=== PATIENT | male | born 1955 | race Caucasian/White ===

== ENCOUNTER 2020-01-24 19:02 | Emergency (ER) | payer SELFPAY ==
[2020-01-24] VITALS (8 sets, daily range): BP systolic 105–184; BP diastolic 64–114; PULSE 87–111; RESP 16–18; TEMP 36.8; O2SAT 91–94; BMI 23.9
--- NOTE | 2020-01-24 19:16 | XRR_ITS ---
PROCEDURE INFORMATION: Exam: XR Chest, 1 View Exam date and time: 01/24/2020 7:19 PM Age: 64 years old Clinical indication: Cough TECHNIQUE: Imaging protocol: XR of the chest Views: 1 view. COMPARISON: No relevant prior studies available. FINDINGS: Lungs: Mild interstitial prominence in the lung bases is likely chronic change. No focal consolidation. Emphysema. Pleural space: Unremarkable. No pleural effusion. No pneumothorax. Heart/Mediastinum: Unremarkable. No cardiomegaly. Bones/joints: Unremarkable. XR/XR chest 1V portable [id number] IMPRESSION: No acute findings.
--- NOTE | 2020-01-24 19:34 | ED_ITS ---
HPI - COVID General: Chief Complaint: COVID symptoms Stated Complaint: N/V body aches chills, Time Seen by Provider: 01/24/20 19:15 Triage information: No fever, cough or shortness of breath . No known COVID + exposure last 14 days History of Present Illness: HPI Narrative: 64-year-old male presents with a 2- week history of cough, body aches, vomiting, and diarrhea. He presents with worsening symptoms. He notes that he was better for a couple of days, but then began to get worse yesterday. He states he is vomited 30 times today. He has not had a fever today. He has not been tested for Covid. Prior covid testing: no COVID 19 common symptoms: positive chills, cough, productive cough, dyspnea, body aches, headache(s), nausea and vomiting COVID 19 other sytmptoms: negative chest pressure, chest pain, requiring oxygen or confusion Onset (ago): day(s) Pertinent comorbid conditions: diabetes Treatment prior to arrival: acetaminophen and cold medicine COVID Results: SARS-CoV-2 Antigen (Rapid) Negative (Negative) 01/24/20 19:52 01/24/20 SARS-CoV-2 RNA (RT-PCR) Pending 01/24/20 19:52 01/24/20 Review of Systems Const: Reports: chills and body aches Eyes: Denies: change in vision ENMT: Reports: odynophagia and sinus pain; Denies: swelling of lips/tongue, bleeding gums or post nasal drip Card: Denies: chest pain Resp: Reports: dyspnea and productive cough GI: Reports: nausea and vomiting; Denies: abdominal pain, hematochezia or melena : Denies: difficulty urinating or hematuria Musc: Denies: neck pain or joint warmth Skin/Breast: Denies: rash or erythema Neuro: Reports: headache(s); Denies: dizziness, vertigo or confusion Psych: Denies: anxiety Physical Exam Const: GENERAL APPEARANCE: well developed ORIENTATION/CONSCIOUSNESS: Yes oriented to person, Yes oriented to place and Yes oriented to time HENMT: COMMON NORMALS: normocephalic, external ears normal and Normal external nose present HEAD & SCALP: normocephalic FACE & SINUS: normal facial exam NOSE: Normal external nose present and No nasal discharge present EXTERNAL EAR: Yes external ears normal Eye: COMMON NORMALS: Equal, round and reactive pupils present, EOMs intact bilaterally and conjunctivae normal EYELID: eyelids normal CONJUNCTIVA: Yes conjunctivae normal PUPIL: Yes Equal, round and reactive pupils present Neck/C-Spine: GENERAL: No tracheal deviation Chest: COMMONS NORMALS: normal inspection of the chest CHEST: No tenderness Resp: COMMON NORMALS: clear to auscultation bilaterally EFFORT & INSPECTION: No tachypneic, No respiratory distress, No retractions, No uses accessory muscles and No tracheal deviation AUSCULTATION: clear to auscultation bilaterally, no rhonchi, no wheezes and lung sounds not diminished Cardio: COMMON NORMALS: regular rate and regular rhythm RATE: regular rate RHYTHM: regular rhythm HEART SOUNDS: no murmurs PERIPHERAL PULSES: radial pulses present GI: INSPECTION: No abdominal distension AUSCULTATION: No Hyperactive bowel sounds present and No Hypoactive bowel sounds present PALPATION: Yes Tenderness to palpation present (GI) (Mild) Details: LLQ, No Guarding due to palpation present (GI) and No Rigid due to palpation PERCUSSION: no dullness to percussion and no tympanic to percussion Neuro: SENSORIUM/ORIENTATION: Yes oriented to person, Yes oriented to place and Yes oriented to time Psych: COMMON NORMALS: mental status grossly normal Skin: COMMON NORMALS: no rashes or lesions noted GENERAL SKIN EXAM: no rashes or lesions noted Course Vital Signs: Vital signs: Vital Signs Temperature 98.2 F 01/24/20 19:08 Pulse Rate 92 01/25/20 02:00 Respiratory Rate 16 01/25/20 02:00 Blood Pressure 122/63 01/25/20 02:00 Pulse Oximetry 91 01/25/20 02:00 MDM - COVID [facility] Narrative: Medical decision making narrative: 64-year-old male comes in with vomiting and less so diarrhea. He is an insulin-dependent diabetic who has not had his insulin for several months. He has mild diffuse belly tenderness. His white count is 10. There is no significant elevation in his inflammatory markers. His first bicarbonate level is 20. He has ketones in the serum and urine. His pH is 7.35. He has been given 3 L of fluid. He is received IV insulin. His current glucose is 179, his gap is closed down to 15. His bicarbonate level is now 24. His electrolytes remain normal. He will be given 7 units of Lantus, which is half his normal dose, and prescriptions for sliding scale insulin and Lantus to go home with. Knows to return for further problems. Lab Data: Labs: Lab Results 01/24/20 01/24/20 01/24/20 Range/Units 19:52 19:52 19:56 WBC 10.0 (4.0-10.0) 10^3/ uL RBC 5.85 H (4.1-5.3) 10^6/u L Hgb 17.6 H (11.7-16.6) g/dL Hct 51.5 (42.0-52.0) % MCV 88.0 (80-94) fL MCH 30.1 (28.0-34.0) pg MCHC 34.2 (30.0-36.0) g/dL RDW 12.5 (12.1-15.1) % Plt Count 328 (130-400) 10^3/c mm MPV 10.7 H (7.4-10.4) fL Neut % (Auto) 79.2 % Lymph % (Auto) 15.2 % Dodge % (Auto) 4.7 % Eos % (Auto) 0.1 % Baso % (Auto) 0.3 % Neut # (Auto) 7.88 H (1.8-7.7) 10^3/u L Lymph # (Auto) 1.5 (0.8-4.8) 10^3/u L Dodge # (Auto) 0.5 (0.2-0.9) 10^3/u L Eos # (Auto) 0.0 (0.0-0.8) 10^3/u L Baso # (Auto) 0.0 (0.0-0.1) 10^3/u L Nucleated RBC % (a uto) 0 % Nucleated RBCs # 0.0 /100WBC Fibrinogen (174-498) mg/dL Specimen Type Sample Site ABG pH (7.35-7.45) ABG pCO2 (35-45) mmHg ABG pO2 (80.0-100.0) mmH g ABG HCO3 (22-26) mmol/L ABG Base Excess (-2.0-2.0) mmol/ L Chuck Test Hematocrit (42-52) % O2 Delivery Device FiO2 % Electrophysiology Scientist ID Sodium (136-145) mmol/L Potassium (3.5-5.1) mmol/L Chloride (98-107) mmol/L Carbon Dioxide (22-29) mmol/L Anion Gap (5-19) BUN (8-23) mg/dL Creatinine (0.7-1.2) mg/dL GFR Calculation (90-130) mL/min Glucose (65-115) mg/dL POC Glucose (70-110) mg/dL Calculated Osmolal ity (285-295) mOsm/k g Lactic Acid Calcium (8.5-10.5) mg/dL Total Bilirubin (0.15-1.2) mg/dL AST (0-40) U/L ALT (0-41) U/L Alkaline Phosphata se (40-130) IU/L C-Reactive Protein (0.0-4.9) mg/L NT-Pro-B Natriuret Pep (0-125) pg/mL Total Protein (6.6-8.7) g/dL Albumin (3.5-5.2) g/dL Globulin (1.3-4.6) g/dL Lipase (13-60) U/L Procalcitonin (0-0.5) ng/mL Urine Color (Yellow) Urine Appearance (CLEAR) Urine pH (5-7) Ur Specific Gravit y (1.005-1.030) Urine Protein (Negative) Urine Glucose (UA) (Normal) Urine Ketones (Negative) Urine Blood (Negative) Urine Nitrate (Negative) Urine Bilirubin (Negative) Urine Urobilinogen (Negative) mg/dL Ur Leukocyte My ase (Negative) Serum Ketones (Negative) Influenza Type A A g Negative (Negative) Influenza Type B A g Negative (Negative) SARS-CoV-2 Ag (Rap id) Negative (Negative) 01/24/20 01/24/20 01/24/20 Range/Units 19:56 19:56 19:56 WBC (4.0-10.0) 10^3/ uL RBC (4.1-5.3) 10^6/u L Hgb (11.7-16.6) g/dL Hct (42.0-52.0) % MCV (80-94) fL MCH (28.0-34.0) pg MCHC (30.0-36.0) g/dL RDW (12.1-15.1) % Plt Count (130-400) 10^3/c mm MPV (7.4-10.4) fL Neut % (Auto) % Lymph % (Auto) % Dodge % (Auto) % Eos % (Auto) % Baso % (Auto) % Neut # (Auto) (1.8-7.7) 10^3/u L Lymph # (Auto) (0.8-4.8) 10^3/u L Dodge # (Auto) (0.2-0.9) 10^3/u L Eos # (Auto) (0.0-0.8) 10^3/u L Baso # (Auto) (0.0-0.1) 10^3/u L Nucleated RBC % (a uto) % Nucleated RBCs # /100WBC Fibrinogen 433 (174-498) mg/dL Specimen Type Sample Site ABG pH (7.35-7.45) ABG pCO2 (35-45) mmHg ABG pO2 (80.0-100.0) mmH g ABG HCO3 (22-26) mmol/L ABG Base Excess (-2.0-2.0) mmol/ L Chuck Test Hematocrit (42-52) % O2 Delivery Device FiO2 % Electrophysiology Scientist ID Sodium 131 L (136-145) mmol/L Potassium 4.1 (3.5-5.1) mmol/L Chloride 91 L (98-107) mmol/L Carbon Dioxide 20 L (22-29) mmol/L Anion Gap 24.1 H (5-19) BUN 12 (8-23) mg/dL Creatinine 0.6 L (0.7-1.2) mg/dL GFR Calculation 136.5 H (90-130) mL/min Glucose 377 H (65-115) mg/dL POC Glucose (70-110) mg/dL Calculated Osmolal ity 287 (285-295) mOsm/k g Lactic Acid Cancelled Calcium 10.2 (8.5-10.5) mg/dL Total Bilirubin 0.6 (0.15-1.2) mg/dL AST 10 (0-40) U/L ALT 15 (0-41) U/L Alkaline Phosphata se 113 (40-130) IU/L C-Reactive Protein 0.6 (0.0-4.9) mg/L NT-Pro-B Natriuret Pep 51 (0-125) pg/mL Total Protein 7.6 (6.6-8.7) g/dL Albumin 4.5 (3.5-5.2) g/dL Globulin 3.1 (1.3-4.6) g/dL Lipase 82 H (13-60) U/L Procalcitonin 0.02 (0-0.5) ng/mL Urine Color (Yellow) Urine Appearance (CLEAR) Urine pH (5-7) Ur Specific Gravit y (1.005-1.030) Urine Protein (Negative) Urine Glucose (UA) (Normal) Urine Ketones (Negative) Urine Blood (Negative) Urine Nitrate (Negative) Urine Bilirubin (Negative) Urine Urobilinogen (Negative) mg/dL Ur Leukocyte My ase (Negative) Serum Ketones (Negative) Influenza Type A A g (Negative) Influenza Type B A g (Negative) SARS-CoV-2 Ag (Rap id) (Negative) 01/24/20 01/24/20 01/24/20 Range/Units 19:56 20:29 22:07 WBC (4.0-10.0) 10^3/ uL RBC (4.1-5.3) 10^6/u L Hgb (11.7-16.6) g/dL Hct (42.0-52.0) % MCV (80-94) fL MCH (28.0-34.0) pg MCHC (30.0-36.0) g/dL RDW (12.1-15.1) % Plt Count (130-400) 10^3/c mm MPV (7.4-10.4) fL Neut % (Auto) % Lymph % (Auto) % Dodge % (Auto) % Eos % (Auto) % Baso % (Auto) % Neut # (Auto) (1.8-7.7) 10^3/u L Lymph # (Auto) (0.8-4.8) 10^3/u L Dodge # (Auto) (0.2-0.9) 10^3/u L Eos # (Auto) (0.0-0.8) 10^3/u L Baso # (Auto) (0.0-0.1) 10^3/u L Nucleated RBC % (a uto) % Nucleated RBCs # /100WBC Fibrinogen (174-498) mg/dL Specimen Type Sample Site ABG pH (7.35-7.45) ABG pCO2 (35-45) mmHg ABG pO2 (80.0-100.0) mmH g ABG HCO3 (22-26) mmol/L ABG Base Excess (-2.0-2.0) mmol/ L Chuck Test Hematocrit (42-52) % O2 Delivery Device FiO2 % Electrophysiology Scientist ID Sodium (136-145) mmol/L Potassium (3.5-5.1) mmol/L Chloride (98-107) mmol/L Carbon Dioxide (22-29) mmol/L Anion Gap (5-19) BUN (8-23) mg/dL Creatinine (0.7-1.2) mg/dL GFR Calculation (90-130) mL/min Glucose (65-115) mg/dL POC Glucose (70-110) mg/dL Calculated Osmolal ity (285-295) mOsm/k g Lactic Acid 1.5 Calcium (8.5-10.5) mg/dL Total Bilirubin (0.15-1.2) mg/dL AST (0-40) U/L ALT (0-41) U/L Alkaline Phosphata se (40-130) IU/L C-Reactive Protein (0.0-4.9) mg/L NT-Pro-B Natriuret Pep (0-125) pg/mL Total Protein (6.6-8.7) g/dL Albumin (3.5-5.2) g/dL Globulin (1.3-4.6) g/dL Lipase (13-60) U/L Procalcitonin (0-0.5) ng/mL Urine Color Yellow (Yellow) Urine Appearance Clear (CLEAR) Urine pH 5 (5-7) Ur Specific Gravit y 1.020 (1.005-1.030) Urine Protein Neg (Negative) Urine Glucose (UA) 4+ H (Normal) Urine Ketones 3+ H (Negative) Urine Blood Neg (Negative) Urine Nitrate Negative (Negative) Urine Bilirubin Neg (Negative) Urine Urobilinogen Norm (Negative) mg/dL Ur Leukocyte My ase Negative (Negative) Serum Ketones Positive H (Negative) Influenza Type A A g (Negative) Influenza Type B A g (Negative) SARS-CoV-2 Ag (Rap id) (Negative) 01/24/20 01/25/20 01/25/20 Range/Units 22:10 00:26 01:52 WBC (4.0-10.0) 10^3/ uL RBC (4.1-5.3) 10^6/u L Hgb (11.7-16.6) g/dL Hct (42.0-52.0) % MCV (80-94) fL MCH (28.0-34.0) pg MCHC (30.0-36.0) g/dL RDW (12.1-15.1) % Plt Count (130-400) 10^3/c mm MPV (7.4-10.4) fL Neut % (Auto) % Lymph % (Auto) % Dodge % (Auto) % Eos % (Auto) % Baso % (Auto) % Neut # (Auto) (1.8-7.7) 10^3/u L Lymph # (Auto) (0.8-4.8) 10^3/u L Dodge # (Auto) (0.2-0.9) 10^3/u L Eos # (Auto) (0.0-0.8) 10^3/u L Baso # (Auto) (0.0-0.1) 10^3/u L Nucleated RBC % (a uto) % Nucleated RBCs # /100WBC Fibrinogen (174-498) mg/dL Specimen Type Arterial Sample Site Radial, left ABG pH 7.36 (7.35-7.45) ABG pCO2 39.2 (35-45) mmHg ABG pO2 74.8 L (80.0-100.0) mmH g ABG HCO3 21.9 L (22-26) mmol/L ABG Base Excess -3.3 L (-2.0-2.0) mmol/ L Chuck Test Pos Hematocrit 51.2 (42-52) % O2 Delivery Device None FiO2 21.0 % Electrophysiology Scientist ID [id number] Sodium 137 (136-145) mmol/L Potassium 4.0 (3.5-5.1) mmol/L Chloride 102 (98-107) mmol/L Carbon Dioxide 24 (22-29) mmol/L Anion Gap 15.0 (5-19) BUN 11 (8-23) mg/dL Creatinine 0.5 L (0.7-1.2) mg/dL GFR Calculation 168.5 H (90-130) mL/min Glucose 190 H (65-115) mg/dL POC Glucose 196 (70-110) mg/dL Calculated Osmolal ity 288 (285-295) mOsm/k g Lactic Acid Calcium 9.2 (8.5-10.5) mg/dL Total Bilirubin (0.15-1.2) mg/dL AST (0-40) U/L ALT (0-41) U/L Alkaline Phosphata se (40-130) IU/L C-Reactive Protein (0.0-4.9) mg/L NT-Pro-B Natriuret Pep (0-125) pg/mL Total Protein (6.6-8.7) g/dL Albumin (3.5-5.2) g/dL Globulin (1.3-4.6) g/dL Lipase (13-60) U/L Procalcitonin (0-0.5) ng/mL Urine Color (Yellow) Urine Appearance (CLEAR) Urine pH (5-7) Ur Specific Gravit y (1.005-1.030) Urine Protein (Negative) Urine Glucose (UA) (Normal) Urine Ketones (Negative) Urine Blood (Negative) Urine Nitrate (Negative) Urine Bilirubin (Negative) Urine Urobilinogen (Negative) mg/dL Ur Leukocyte My ase (Negative) Serum Ketones (Negative) Influenza Type A A g (Negative) Influenza Type B A g (Negative) SARS-CoV-2 Ag (Rap id) (Negative) 01/25/20 Range/Units 01:53 WBC (4.0-10.0) 10^3/ uL RBC (4.1-5.3) 10^6/u L Hgb (11.7-16.6) g/dL Hct (42.0-52.0) % MCV (80-94) fL MCH (28.0-34.0) pg MCHC (30.0-36.0) g/dL RDW (12.1-15.1) % Plt Count (130-400) 10^3/c mm MPV (7.4-10.4) fL Neut % (Auto) % Lymph % (Auto) % Dodge % (Auto) % Eos % (Auto) % Baso % (Auto) % Neut # (Auto) (1.8-7.7) 10^3/u L Lymph # (Auto) (0.8-4.8) 10^3/u L Dodge # (Auto) (0.2-0.9) 10^3/u L Eos # (Auto) (0.0-0.8) 10^3/u L Baso # (Auto) (0.0-0.1) 10^3/u L Nucleated RBC % (a uto) % Nucleated RBCs # /100WBC Fibrinogen (174-498) mg/dL Specimen Type Sample Site ABG pH (7.35-7.45) ABG pCO2 (35-45) mmHg ABG pO2 (80.0-100.0) mmH g ABG HCO3 (22-26) mmol/L ABG Base Excess (-2.0-2.0) mmol/ L Chuck Test Hematocrit (42-52) % O2 Delivery Device FiO2 % Electrophysiology Scientist ID Sodium (136-145) mmol/L Potassium (3.5-5.1) mmol/L Chloride (98-107) mmol/L Carbon Dioxide (22-29) mmol/L Anion Gap (5-19) BUN (8-23) mg/dL Creatinine (0.7-1.2) mg/dL GFR Calculation (90-130) mL/min Glucose (65-115) mg/dL POC Glucose 179 (70-110) mg/dL Calculated Osmolal ity (285-295) mOsm/k g Lactic Acid Calcium (8.5-10.5) mg/dL Total Bilirubin (0.15-1.2) mg/dL AST (0-40) U/L ALT (0-41) U/L Alkaline Phosphata se (40-130) IU/L C-Reactive Protein (0.0-4.9) mg/L NT-Pro-B Natriuret Pep (0-125) pg/mL Total Protein (6.6-8.7) g/dL Albumin (3.5-5.2) g/dL Globulin (1.3-4.6) g/dL Lipase (13-60) U/L Procalcitonin (0-0.5) ng/mL Urine Color (Yellow) Urine Appearance (CLEAR) Urine pH (5-7) Ur Specific Gravit y (1.005-1.030) Urine Protein (Negative) Urine Glucose (UA) (Normal) Urine Ketones (Negative) Urine Blood (Negative) Urine Nitrate (Negative) Urine Bilirubin (Negative) Urine Urobilinogen (Negative) mg/dL Ur Leukocyte My ase (Negative) Serum Ketones (Negative) Influenza Type A A g (Negative) Influenza Type B A g (Negative) SARS-CoV-2 Ag (Rap id) (Negative) COVID Results: SARS-CoV-2 Antigen (Rapid) Negative (Negative) 01/24/20 19:52 01/24/20 SARS-CoV-2 RNA (RT-PCR) Pending 01/24/20 19:52 01/24/20 Discharge Plan Discharge Patient Disposition: Home Clinical Impression: Diabetic keto-acidosis Qualifiers: Diabetes mellitus type: type 2 Diabetes mellitus complication detail: without coma Qualified Code(s): E11.10 - Type 2 diabetes mellitus with ketoacidosis wit hout coma Condition: Stable Prescriptions: New Lantus U-100 Insulin 100 unit/mL solution 7 unit SUBCUT BID Qty: 10 RF: 1 insulin regular human 100 unit/mL solution 3 unit SUBCUT AC PRN (Reason: hyperglycemia) Qty: 10 RF: 2 (DME) lancets Misc See Rx Instructions .ROUTE .MEDSUPPLY Qty: 100 RF: 0 Zofran 4 mg tablet 4 mg PO Q6H PRN (Reason: nausea and vomiting) Qty: 10 RF: 0 Discharge Orders: Discharge Order (Routine); Ordered 01/25/20 Ordered By: Gil Torres Discharge Diet: Diabetic Discharge Activity: Increase activity as tolerated Patient Instructions: Diabetic Ketoacidosis (ED) Activity Restrictions/Additional Instructions: Start out with 7 units of Lantus twice daily instead of your normal dose of 15 since you have lost weight recently. Adjust accordingly. Use your sliding scale for regular insulin before meals as you previously did. Check your sugar often. Return to the emergency department for vomiting liquids or medications, fever greater than 100, shortness of breath, worsening diarrhea, other concerning symptoms. Coding Level of Care Code ED Variety Saw Operator for Kennethg Fwd Exam Comprehensive
[2020-01-24] MEDS: ondansetron 2 mg/ML SDV 2 mL 4 MG IVP (20:03)
[2020-01-24] MEDS: sodium chloride 0.9% 1,000 ML 999 ML IV ×3 (20:03→23:35)
[2020-01-24 20:07] LABS: Basophils % 0.3 %; Eosinophils % 0.1 %; Hematocrit 51.5 % (42.0-52.0); Hemoglobin 17.6 g/dL (11.7-16.6); Lymphocytes # 1.5 10^3/uL (0.8-4.8); Lymphocytes % 15.2 %; Mean Corpuscular HGB Conc 34.2 g/dL (30.0-36.0); Mean Corpuscular Hemoglobin 30.1 pg (28.0-34.0); Mean Platelet Volume 10.7 fL (7.4-10.4); Monocytes # 0.5 10^3/uL (0.2-0.9); Monocytes % 4.7 %; Neutrophils # 7.88 10^3/uL (1.8-7.7); Neutrophils % 79.2 %; Nucleated Red Blood Cells % 0 %; Platelet Count 328 10^3/cmm (130-400); Red Blood Count 5.85 10^6/uL (4.1-5.3); Red Cell Distribution Width 12.5 % (12.1-15.1)
[2020-01-24 20:20] LABS: Fibrinogen 433 mg/dL (174-498)
[2020-01-24 20:35] LABS: Alanine Aminotransferase 15 U/L (0-41); Albumin Level 4.5 g/dL (3.5-5.2); Alkaline Phosphatase 113 IU/L (40-130); Anion Gap 24.1 (5-19); Aspartate Amino Transferase 10 U/L (0-40); Blood Urea Nitrogen 12 mg/dL (8-23); C Reactive Protein 0.6 mg/L (0.0-4.9); Calcium 10.2 mg/dL (8.5-10.5); Carbon Dioxide 20 mmol/L (22-29); Chloride 91 mmol/L (98-107); Globulin 3.1 g/dL (1.3-4.6); Glomerular Filtration Rate 136.5 mL/min (90-130); Glucose 377 mg/dL (65-115); Lipase 82 U/L (13-60); NT Pro B Type Natriuretic Pept 51 pg/mL (0-125); Osmolality Calculated 287 mOsm/kg (285-295); Potassium 4.1 mmol/L (3.5-5.1); Sodium 131 mmol/L (136-145); Total Bilirubin 0.6 mg/dL (0.15-1.2); Total Protein 7.6 g/dL (6.6-8.7)
[2020-01-24 21:19] LABS: Influenza A by IFA Negative (Negative); Influenza B by IFA Negative (Negative); SARS Covid-2 Antigen Negative (Negative)
[2020-01-24 21:23] LABS: Lactic Sepsis W/Reflex 1.5 mmol/L (0.5-2.2)
[2020-01-24 22:06] LABS: Ketone (Acetest) Serum Positive (Negative)
[2020-01-24 22:13] LABS: Add Urine Microscopic? NO
[2020-01-24 22:20] LABS: ABG PCO2 39.2 mmHg (35-45); ABG PH Result 7.36 (7.35-7.45); Arterial Blood Gas Hematocrit 51.2 % (42-52); Base Excess ABG -3.3 mmol/L (-2.0-2.0); Blood Gas Allen Test Pos; Blood Gas Sample Site Radial, left; Blood Gas Sample Type Arterial; HCO3 ABG 21.9 mmol/L (22-26); PO2 ABG 74.8 mmHg (80.0-100.0)
[2020-01-24 22:26] LABS: Bilirubin Urine Neg (Negative); Blood Urine Neg (Negative); Glucose Urine UA 4+ (Normal); Ketones Urine 3+ (Negative); Leukocyte Esterase Urine Negative (Negative); Nitrate Urine Negative (Negative); Protein Urine Neg (Negative); Urine Appearance Clear (CLEAR); Urine Color Yellow (Yellow); Urobilinogen Urine Norm (Negative); pH Urine 5 (5-7)
[2020-01-24] MEDS: albuterol 8 gm MDI 2 PUFF INHALATION (22:39)
[2020-01-24 22:43] LABS: Procalcitonin 0.02 ng/mL (0-0.5)
[2020-01-24] MEDS: insulin regular-human 100 units/1 mL 8 UNIT IVP (23:30)
[2020-01-25] VITALS (7 sets, daily range): BP systolic 105–148; BP diastolic 61–75; PULSE 78–92; RESP 16–18; O2SAT 90–94
--- NOTE | 2020-01-25 00:28 | PC.NURSE ---
PT glu:196
[2020-01-25 00:29] LABS: Glucose Point of Care 196 mg/dL (70-110)
[2020-01-25] MEDS: insulin regular-human 100 units/1 mL 3 UNIT IVP (01:13)
--- NOTE | 2020-01-25 01:54 | PC.NURSE ---
Glu: 179
[2020-01-25 01:56] LABS: Glucose Point of Care 179 mg/dL (70-110)
[2020-01-25 02:18] LABS: Blood Urea Nitrogen 11 mg/dL (8-23); Calcium 9.2 mg/dL (8.5-10.5); Carbon Dioxide 24 mmol/L (22-29); Chloride 102 mmol/L (98-107); Glomerular Filtration Rate 168.5 mL/min (90-130); Glucose 190 mg/dL (65-115); Osmolality Calculated 288 mOsm/kg (285-295); Sodium 137 mmol/L (136-145)
[2020-01-25] MEDS: insulin glargine 100 units/1 mL 7 UNIT SUBCUT (02:52)
[2020-01-27 05:25] LABS: Quest SARS-CoV-2 RNA NOT DETECTED (NOT DETECTED)
--- NOTE | 2020-01-27 08:46 | PC.NURSE ---
pt was contacted via phone and given the results of his covid test
== END 2020-01-25 03:01 | disposition home or self-care (01) ==
PROVIDERS: Emergency Provider Emergency Medicine
DX: E11.10 Type 2 diabetes mellitus with ketoacidosis without coma (principal)
CPT/HCPCS: 12345; 36416; 36600; 71045; 80048; 80053; 81003; 82009; 82803; 82962; 83605; 83690; 83880; 84145; 85025; 85384; 86140; 87040; 87426; 87635; 87804; 94640; 96361; 96372; 96374; 96375; 96376; 99283; 99284; J1815 ×2; J2405; J3535; J7030

== ENCOUNTER 2020-04-07 17:09 | Emergency (ER) | payer SELFPAY ==
[2020-04-07 17:20] VITALS: BP 169/98; PULSE 86; RESP 18; TEMP 36.7; O2SAT 93; BMI 24.7
[2020-04-07 17:34] LABS: Glucose Point of Care 359 mg/dL (70-110)
--- NOTE | 2020-04-07 18:17 | ECG_ITS ---
[facility] Test Date: 2020-04-07 Pat Name: Dangelo Patricia Department: Room: Gender: Male [employer]ier [employer]: : 1955 Requested By: Kendra Blandon Order Number: [id number] Mckayla MD: Chaya Linn M.D. Measurements Intervals [place] Rate: 85 P: 73 AZ: 130 QRS: 57 QRSD: 86 T: 62 QT: 361 QTc: 432 Interpretive Statements SINUS RHYTHM No previous ECG available for comparison Electronically Signed On 04-07-2020 20:18:45 PICKLE [employer]KER by Chaya Linn M.D. [email or web address]
--- NOTE | 2020-04-07 18:17 | XR_ITS ---
WS: [id number] Portable AP upright chest, 04/07/2020 Clinical Data: sob Comparison: Portable chest, 01/24/2020. Findings: No nodules, masses or effusions are seen. The heart is normal. The pulmonary vascularity is not increased. No pneumonia or pneumothorax is seen. Monitor leads are on the chest wall. The aortic arch and descending aorta show tortuosity. XR/XR chest 1V portable [id number] Impression: Atherosclerosis.
--- NOTE | 2020-04-07 18:19 | ED_ITS ---
HPI - SOB/Dyspnea General: Chief Complaint: Shortness of Breath/Dyspnea Stated Complaint: DIFFICULTY BREATHING, HAS COPD Time Seen by Provider: 04/07/20 18:10 Source: patient Mode of arrival: ambulatory Limitations: no limitations History of Present Illness: HPI Narrative: Christiano is a 64-year-old male who has a history of diabetes along with COPD. Patient is concerned he might be going into DKA as he has in the past and his blood sugar has been increasing up to 400. States he had some mild shortness of breath as he is recently ran out of his albuterol inhaler. He states he is in between jobs and does not have insurance currently. Denies any fever. He is in no distress here. Denies any chest pain. Associated symptoms: Deny abdominal pain, chest pain, fever(s), nausea or vomiting Review of Systems Const: Denies: fever(s), chills, body aches or change in appetite Eyes: Denies: blurry vision or eye discomfort ENMT: Denies: throat pain or dental pain Card: Denies: chest pain Resp: Reports: dyspnea GI: Denies: abdominal pain, nausea, vomiting or diarrhea : Denies: dysuria Musc: Denies: neck pain or back pain Skin/Breast: Denies: rash Neuro: Denies: headache(s) Psych: Denies: depression Hipolito/Lymph: Denies: easy bruising All/Imm: Denies: urticaria Physical Exam Const: COMMON NORMALS: no acute distress, patient oriented x3 and healthy appearing HENMT: COMMON NORMALS: normocephalic and atraumatic HEAD & SCALP: normocephalic and atraumatic Eye: COMMON NORMALS: Equal, round and reactive pupils present and EOMs intact bilaterally PUPIL: Yes Equal, round and reactive pupils present Neck/C-Spine: COMMON NORMALS: full ROM and supple Chest: COMMONS NORMALS: normal inspection of the chest and normal palpation of entire chest wall Resp: COMMON NORMALS: normal respiratory effort, No retractions, No use of accessory muscles and clear to auscultation bilaterally AUSCULTATION: clear to auscultation bilaterally Cardio: COMMON NORMALS: regular rate, regular rhythm and No murmurs present (Cardio) RATE: regular rate RHYTHM: regular rhythm GI: COMMON NORMALS: Normal to inspection, nondistended, normoactive bowel sounds present, Soft to palpation, non-tender and no masses PALPATION: Yes Soft to palpation Extremity: COMMON NORMALS: normal to inspection and full ROM Neuro: COMMON NORMALS: patient oriented x3, moves all extremities and no focal motor deficits Psych: COMMON NORMALS: mental status grossly normal, Normal thought process present and cooperative THOUGHT PROCESS: Normal thought process present Skin: COMMON NORMALS: no rashes or lesions noted and no wounds GENERAL SKIN EXAM: no rashes or lesions noted Course Vital Signs: Vital signs: Vital Signs Temperature 98.0 F 04/07/20 17:20 Pulse Rate 93 04/07/20 19:00 Respiratory Rate 16 04/07/20 19:00 Blood Pressure 153/91 04/07/20 19:00 Pulse Oximetry 96 04/07/20 19:00 MDM - SOB/Dyspnea MDM Narrative: Medical decision making narrative: Patient presents here with hyperglycemia. He is not DKA and his blood sugar is improved here. Informed he needs to take his meds as prescribed. Patient's in no respiratory distress and is to take albuterol for his COPD. He has no signs of pneumonia. He feels improved. He is stable for discharge and is return if worsening. Lab Data: Labs: Lab Results 04/07/20 04/07/20 04/07/20 Range/Units 17:26 18:30 18:43 WBC 10.3 H (4.0-10.0) 10^3/ uL RBC 5.46 H (4.1-5.3) 10^6/u L Hgb 16.5 (11.7-16.6) g/dL Hct 48.6 (42.0-52.0) % MCV 89.0 (80-94) fL MCH 30.2 (28.0-34.0) pg MCHC 34.0 (30.0-36.0) g/dL RDW 13.5 (12.1-15.1) % Plt Count 331 (130-400) 10^3/c mm MPV 10.4 (7.4-10.4) fL Neut % (Auto) 66.4 % Lymph % (Auto) 22.9 % [place] % (Auto) 7.0 % Eos % (Auto) 2.8 % Baso % (Auto) 0.4 % Neut # (Auto) 6.87 (1.8-7.7) 10^3/u L Lymph # (Auto) 2.4 (0.8-4.8) 10^3/u L [place] # (Auto) 0.7 (0.2-0.9) 10^3/u L Eos # (Auto) 0.3 (0.0-0.8) 10^3/u L Baso # (Auto) 0.0 (0.0-0.1) 10^3/u L Nucleated RBC % (a uto) 0 % Nucleated RBCs # 0.0 /100WBC Specimen Type Arterial Sample Site Brachial, left ABG pH 7.46 H (7.35-7.45) ABG pCO2 39.0 (35-45) mmHg ABG pO2 71.1 L (80.0-100.0) mmH g ABG HCO3 27.5 H (22-26) mmol/L ABG Base Excess 3.4 H (-2.0-2.0) mmol/ L Chuck Test N/a Hematocrit 53.3 H (42-52) % Hgb O2 Saturation 93.0 L (95-100) % Carboxyhemoglobin < 0.0 L (0.4-20.1) %THgb Methemoglobin 0.6 (0.4-1.5) % Total Hemoglobin 17.4 (14-18) g/dL O2 Delivery Device Room air Physical Therapy Director ID Gd Sodium (136-145) mmol/L Potassium (3.5-5.1) mmol/L Chloride (98-107) mmol/L Carbon Dioxide (22-29) mmol/L Anion Gap (5-19) BUN (8-23) mg/dL Creatinine (0.7-1.2) mg/dL GFR Calculation (90-130) mL/min Glucose (65-115) mg/dL POC Glucose 359 H (70-110) mg/dL Calculated Osmolal ity (285-295) mOsm/k g Calcium (8.5-10.5) mg/dL Total Bilirubin (0.15-1.2) mg/dL AST (0-40) U/L ALT (0-41) U/L Alkaline Phosphata se (40-130) IU/L NT-Pro-B Natriuret Pep (0-125) pg/mL Total Protein (6.6-8.7) g/dL Albumin (3.5-5.2) g/dL Globulin (1.3-4.6) g/dL 04/07/20 04/07/20 Range/Units 18:43 20:09 WBC (4.0-10.0) 10^3/ uL RBC (4.1-5.3) 10^6/u L Hgb (11.7-16.6) g/dL Hct (42.0-52.0) % MCV (80-94) fL MCH (28.0-34.0) pg MCHC (30.0-36.0) g/dL RDW (12.1-15.1) % Plt Count (130-400) 10^3/c mm MPV (7.4-10.4) fL Neut % (Auto) % Lymph % (Auto) % [place] % (Auto) % Eos % (Auto) % Baso % (Auto) % Neut # (Auto) (1.8-7.7) 10^3/u L Lymph # (Auto) (0.8-4.8) 10^3/u L [place] # (Auto) (0.2-0.9) 10^3/u L Eos # (Auto) (0.0-0.8) 10^3/u L Baso # (Auto) (0.0-0.1) 10^3/u L Nucleated RBC % (a uto) % Nucleated RBCs # /100WBC Specimen Type Sample Site ABG pH (7.35-7.45) ABG pCO2 (35-45) mmHg ABG pO2 (80.0-100.0) mmH g ABG HCO3 (22-26) mmol/L ABG Base Excess (-2.0-2.0) mmol/ L Chuck Test Hematocrit (42-52) % Hgb O2 Saturation (95-100) % Carboxyhemoglobin (0.4-20.1) %THgb Methemoglobin (0.4-1.5) % Total Hemoglobin (14-18) g/dL O2 Delivery Device Physical Therapy Director ID Sodium 133 L (136-145) mmol/L Potassium 4.4 (3.5-5.1) mmol/L Chloride 97 L (98-107) mmol/L Carbon Dioxide 25 (22-29) mmol/L Anion Gap 15.4 (5-19) BUN 18 (8-23) mg/dL Creatinine 0.5 L (0.7-1.2) mg/dL GFR Calculation 168.5 H (90-130) mL/min Glucose 325 H (65-115) mg/dL POC Glucose 248 H (70-110) mg/dL Calculated Osmolal ity 290 (285-295) mOsm/k g Calcium 10.1 (8.5-10.5) mg/dL Total Bilirubin 0.3 (0.15-1.2) mg/dL AST 11 (0-40) U/L ALT 20 (0-41) U/L Alkaline Phosphata se 119 (40-130) IU/L NT-Pro-B Natriuret Pep 19 (0-125) pg/mL Total Protein 7.4 (6.6-8.7) g/dL Albumin 4.2 (3.5-5.2) g/dL Globulin 3.2 (1.3-4.6) g/dL Imaging Data^: CXR: Attestation: I personally reviewed and interpreted this imaging study as follows: My impression: no acute abnormality EKG Data^: EKG 1: Attestation: I personally reviewed and interpreted this EKG as follows: EKG Interpretation Date: 04/07/20 EKG interpretation time: 19:08 Interpretation: nsr hr [address] or t wave abnormalities qrs 86 qtc 404 Discharge Plan Discharge Patient Disposition: Home Clinical Impression: Hyperglycemia COPD (chronic obstructive pulmonary disease) Qualifiers: COPD type: unspecified COPD Qualified Code(s): J44.9 - Chronic obstructive pulmonary disease, unspecified Condition: Stable Prescriptions: New albuterol sulfate 90 mcg/actuation HFA aerosol inhaler 2 inh INHALATION Q6H PRN (Reason: shortness of breath or wheezing) Qty: 8 RF: 0 ondansetron 4 mg tablet,disintegrating 4 mg PO Q6H PRN (Reason: nausea and vomiting) Qty: 14 RF: 0 No Action (DME) lancets Misc See Rx Instructions .ROUTE .MEDSUPPLY Qty: 100 RF: 0 ondansetron HCl [Zofran] 4 mg tablet 4 mg PO Q6H PRN (Reason: nausea and vomiting) Qty: 10 RF: 0 Lantus U-100 Insulin 100 unit/mL solution 10 unit SUBCUT BID RF: 0 insulin regular human 100 unit/mL solution 3 unit SUBCUT BID PRN (Reason: hyperglycemia) RF: 0 Discharge Orders: Discharge ED (Routine); Ordered 04/07/20 Ordered By: Kendra Blandon Discharge Diet: Advance as tolerated Discharge Activity: Resume usual activity Patient Instructions: Hyperglycemia, Chronic Obstructive Pulmonary Disease (ED) Coding Level of Care Code ED Mica Machine Operator for Mark Fwd Exam Comprehensive
[2020-04-07 18:36] VITALS: PULSE 85; RESP 20; O2SAT 94
[2020-04-07 18:37] VITALS: PULSE 86
[2020-04-07 18:46] LABS: ABG PH Result 7.46 (7.35-7.45); Arterial Blood Gas Hematocrit 53.3 % (42-52); Base Excess ABG 3.4 mmol/L (-2.0-2.0); Blood Gas Operator Identificat GD; Blood Gas Sample Site Brachial, left; Blood Gas Sample Type Arterial; Carboxyhemoglobin < 0.0 %THgb (0.4-20.1); HCO3 ABG 27.5 mmol/L (22-26); Methemoglobin 0.6 % (0.4-1.5); Oxygen Device ROOM AIR; PO2 ABG 71.1 mmHg (80.0-100.0); Total Hemoglobin 17.4 g/dL (14-18)
[2020-04-07 19:00] VITALS: BP 153/91; PULSE 93; RESP 16; O2SAT 96
[2020-04-07 19:11] LABS: Basophils % 0.4 %; Eosinophils # 0.3 10^3/uL (0.0-0.8); Eosinophils % 2.8 %; Hematocrit 48.6 % (42.0-52.0); Hemoglobin 16.5 g/dL (11.7-16.6); Lymphocytes # 2.4 10^3/uL (0.8-4.8); Lymphocytes % 22.9 %; Mean Corpuscular Hemoglobin 30.2 pg (28.0-34.0); Mean Platelet Volume 10.4 fL (7.4-10.4); Monocytes # 0.7 10^3/uL (0.2-0.9); Neutrophils # 6.87 10^3/uL (1.8-7.7); Neutrophils % 66.4 %; Nucleated Red Blood Cells % 0 %; Platelet Count 331 10^3/cmm (130-400); Red Blood Count 5.46 10^6/uL (4.1-5.3); Red Cell Distribution Width 13.5 % (12.1-15.1); White Blood Count 10.3 10^3/uL (4.0-10.0)
[2020-04-07 19:30] LABS: Alanine Aminotransferase 20 U/L (0-41); Albumin Level 4.2 g/dL (3.5-5.2); Alkaline Phosphatase 119 IU/L (40-130); Anion Gap 15.4 (5-19); Aspartate Amino Transferase 11 U/L (0-40); Blood Urea Nitrogen 18 mg/dL (8-23); Calcium 10.1 mg/dL (8.5-10.5); Carbon Dioxide 25 mmol/L (22-29); Chloride 97 mmol/L (98-107); Globulin 3.2 g/dL (1.3-4.6); Glomerular Filtration Rate 168.5 mL/min (90-130); Glucose 325 mg/dL (65-115); NT Pro B Type Natriuretic Pept 19 pg/mL (0-125); Osmolality Calculated 290 mOsm/kg (285-295); Potassium 4.4 mmol/L (3.5-5.1); Sodium 133 mmol/L (136-145); Total Bilirubin 0.3 mg/dL (0.15-1.2); Total Protein 7.4 g/dL (6.6-8.7)
[2020-04-07] MEDS: sodium chloride 0.9% 1,000 ML 999 ML IV (19:30)
[2020-04-07] MEDS: insulin regular-human 100 units/1 mL 5 UNIT IVP (19:30)
[2020-04-07 20:12] LABS: Glucose Point of Care 248 mg/dL (70-110)
[2020-04-07] MEDS: ondansetron 2 mg/ML SDV 2 mL 4 MG IVP (20:12)
[2020-04-07] MEDS: albuterol 8 gm MDI 2 PUFF INHALATION (20:35)
[2020-04-07 20:37] VITALS: PULSE 89; RESP 18; O2SAT 92
[2020-04-07 20:38] VITALS: BP 170/98; PULSE 86; RESP 18; O2SAT 96
== END 2020-04-07 20:39 | disposition home or self-care (01) ==
PROVIDERS: Emergency Provider Emergency Medicine
DX: J44.9 Chronic obstructive pulmonary disease, unspecified (principal); E11.65 Type 2 diabetes mellitus with hyperglycemia; Z79.4 Long term (current) use of insulin
CPT/HCPCS: 12345; 36416; 36600; 71045; 80053; 82805; 82962; 83880; 85025; 93005; 94640; 96361; 96374; 96375; 99282; 99284; J1815; J2405; J3535; J7030; J7611

== ENCOUNTER 2020-06-26 10:22 | Emergency (ER) | payer SELFPAY ==
[2020-06-26 10:29] VITALS: BP 208/115; PULSE 99; RESP 26; TEMP 36.3; O2SAT 98; BMI 23.6
--- NOTE | 2020-06-26 10:37 | XRR_ITS ---
PROCEDURE INFORMATION: Exam: XR Chest Exam date and time: 06/26/2020 10:52 AM Age: 65 years old Clinical indication: Shortness of breath; Additional info: SOB TECHNIQUE: Imaging protocol: XR of the chest. Views: 1 view. COMPARISON: CR XR chest 1V portable [id number] 04/07/2020 6:44 PM FINDINGS: Lungs: Unremarkable. No consolidation. Pleural spaces: Unremarkable. No pleural effusion. No pneumothorax. Heart/Mediastinum: Unremarkable. No cardiomegaly. Bones/joints: Unremarkable. XR/XR chest 1V portable [id number] IMPRESSION: No acute findings.
[2020-06-26 10:47] LABS: Glucose Point of Care 270 mg/dL (70-110)
[2020-06-26] MEDS: ondansetron 2 mg/ML SDV 2 mL 4 MG IVP (10:50)
[2020-06-26] MEDS: sodium chloride 0.9% 1,000 ML 999 ML IV ×2 (10:51→14:05)
[2020-06-26 11:00] LABS: Arterial Blood Gas Hematocrit 54.8 % (42-52); Base Excess ABG 0.4 mmol/L (-2.0-2.0); Blood Gas Allen Test Pos; Blood Gas Operator Identificat CAK; Blood Gas Sample Site Radial, left; Blood Gas Sample Type Arterial; Carboxyhemoglobin 0.1 %THgb (0.4-20.1); HCO3 ABG 18.9 mmol/L (22-26); HGB O2 Sat 95.4 % (95-100); Methemoglobin 0.5 % (0.4-1.5); Oxygen Device ROOM AIR; PO2 ABG 75.2 mmHg (80.0-100.0); Total Hemoglobin 17.9 g/dL (14-18)
[2020-06-26 11:36] LABS: Basophils % 0.3 %; Eosinophils % 0.2 %; Hematocrit 49.6 % (42.0-52.0); Hemoglobin 17.1 g/dL (11.7-16.6); Lymphocytes # 2.1 10^3/uL (0.8-4.8); Lymphocytes % 20.4 %; Mean Corpuscular HGB Conc 34.5 g/dL (30.0-36.0); Mean Corpuscular Hemoglobin 29.6 pg (28.0-34.0); Mean Corpuscular Volume 85.8 fL (80-94); Mean Platelet Volume 11.3 fL (7.4-10.4); Monocytes # 0.5 10^3/uL (0.2-0.9); Monocytes % 4.7 %; Neutrophils % 74.1 %; Nucleated Red Blood Cells % 0 %; Platelet Count 311 10^3/cmm (130-400); Red Blood Count 5.78 10^6/uL (4.1-5.3); Red Cell Distribution Width 12.7 % (12.1-15.1); White Blood Count 10.1 10^3/uL (4.0-10.0)
[2020-06-26 11:37] LABS: Ketone (Acetest) Serum Positive (Negative)
[2020-06-26 11:45] LABS: Alanine Aminotransferase 14 U/L (0-41); Albumin Level 4.3 g/dL (3.5-5.2); Alkaline Phosphatase 102 IU/L (40-130); Anion Gap 24.6 (5-19); Aspartate Amino Transferase 11 U/L (0-40); Blood Urea Nitrogen 17 mg/dL (8-23); Calcium 9.6 mg/dL (8.5-10.5); Carbon Dioxide 18 mmol/L (22-29); Chloride 97 mmol/L (98-107); Creatinine Clr Calc Pharmacy 109.1597; Globulin 3.2 g/dL (1.3-4.6); Glomerular Filtration Rate 113.9 mL/min (90-130); Glucose 304 mg/dL (65-115); Lipase 29 U/L (13-60); Magnesium 1.8 mg/dL (1.7-2.3); Osmolality Calculated 295 mOsm/kg (285-295); Potassium 3.6 mmol/L (3.5-5.1); Sodium 136 mmol/L (136-145); Total Bilirubin 0.6 mg/dL (0.15-1.2); Total Protein 7.5 g/dL (6.6-8.7)
[2020-06-26 11:47] LABS: Lactate (Lactic Acid level) 3.6 mmol/L (0.5-2.2)
[2020-06-26 11:55] LABS: ABG PH Result 7.59 (7.35-7.45)
[2020-06-26 11:56] LABS: ABG PCO2 19.5 mmHg (35-45)
[2020-06-26] MEDS: LORazepam 2 mg/mL INJ 1 mL IVP (12:03)
[2020-06-26 12:16] VITALS: BP 179/110; PULSE 84; RESP 22; O2SAT 96
[2020-06-26 12:30] LABS: Add Urine Microscopic? NO; Charge for UA Resulting for Rev
[2020-06-26 13:07] LABS: Bilirubin Urine Neg (Negative); Blood Urine Neg (Negative); Glucose Urine UA 4+ (Normal); Ketones Urine 2+ (Negative); Nitrate Urine Negative (Negative); Protein Urine Neg (Negative); Specific Gravity, Urine 1.015 (1.005-1.030); Sulfosalicylic Acid Urine Negative (Negative); Urine Appearance Clear (CLEAR); Urine Color Yellow (Yellow); pH Urine 8 (5-7)
[2020-06-26 13:08] LABS: Leukocyte Esterase Urine Negative (Negative); Urobilinogen Urine 1 mg/dL (Negative)
--- NOTE | 2020-06-26 13:32 | CTR_ITS ---
PROCEDURE INFORMATION: Exam: CT Abdomen And Pelvis With Contrast Exam date and time: 06/26/2020 1:50 PM Age: 65 years old Clinical indication: Left lower quadrant abdominal pain with diarrhea. TECHNIQUE: Imaging protocol: Computed tomography of the abdomen and pelvis with contrast. Radiation optimization: All CT scans at this facility use at least one of these dose optimization techniques: automated exposure control; mA and/or kV adjustment per patient size (includes targeted exams where dose is matched to clinical indication); or iterative reconstruction. Contrast material: OMNI 300; Contrast volume: 95 ml; Contrast route: INTRAVENOUS (IV); COMPARISON: No relevant prior studies available. RADIATION DOSE METRICS: Total DLP (mGy-cm): 1298.44 FINDINGS: Lungs: There is suggestion of early honeycombing in the lower lobes. Recommend nonemergent high-resolution CT chest interstitial protocol to better characterize. Mediastinal space: Small hiatal hernia. No pericardial effusion. Liver: An indeterminate right hepatic lesion measures 1.6 cm (image 28). Gallbladder and bile ducts: The gallbladder is unremarkable. Pancreas: The pancreas is unremarkable. Spleen: The spleen is unremarkable. Adrenal glands: The adrenal glands are unremarkable. Kidneys and ureters: A simple left renal cyst measures 1.3 cm. Subcentimeter renal hypodensities are too small to accurately characterize and require no follow-up. No hydronephrosis. Stomach and bowel: The stomach and small bowel are unremarkable. There is mild diffuse wall thickening of the colon; query infectious or inflammatory colitis. Occasional colonic diverticula are seen without evidence of acute diverticulitis. Appendix: The appendix is unremarkable. Intraperitoneal space: No free intraperitoneal air is seen. Vasculature: No abdominal aortic aneurysm. Lymph nodes: No retroperitoneal lymphadenopathy. Urinary bladder: The bladder is unremarkable. Reproductive: The prostate measures 3.3 x 4.2 cm. Bones/joints: No acute fracture is identified. Soft tissues: Tiny fat containing umbilical hernia. CT/CT abdomen pelvis w con* [id number] IMPRESSION: 1. Mild diffuse wall thickening of the colon; query infectious or inflammatory colitis. 2. Indeterminate right hepatic lesion. Recommend nonemergent MR abdomen hepatic protocol with and without contrast to better characterize. 3. Occasional colonic diverticula are seen without evidence of acute diverticulitis. 4. There is suggestion of early honeycombing in the lower lobes. Recommend nonemergent high-resolution CT chest interstitial protocol to better characterize. COMMENTS: Consistent with the [place] [employer]'s Incidental Findings Committee white paper (J Am Dianelys Radiol 2018): Any incidental renal lesion less than 1 cm or classified as too small to characterize, or any incidental cystic renal lesion characterized as simple-appearing, is likely benign. No follow-up imaging is recommended for these lesions per consensus recommendations based on imaging criteria. Radiation Dose CTDIVOL = (mGy): DLP = 1298.44 (mGy-cm)
--- NOTE | 2020-06-26 14:27 | PC.PHAR ---
pt states he takes care of his own medications-pts family member in the room states the pt was suppose to be taking a bp med and metformin but pt states he hasnt taken in 2 to 5 years-pt states he hasnt been able to check his sugar because his machine is broke-pt state the last insulin he got was from [facility]-ext med history shows last filled on 02/05/20 28d/s novolin r 3 units before meals prn-pt states he uses sliding scale daily prn-lantus vial 7 units bid-pt states he hasnt been using the lantus at all-
--- NOTE | 2020-06-26 14:43 | ED_ITS ---
HPI - Nausea/Vomiting/Diarrhea General: Chief complaint: Nausea/Vomiting/Diarrhea Stated complaint: VOMITING, SOB, DIABETIC PT Time Seen by Provider: 06/26/20 10:31 History of Present Illness: HPI Narrative: 65-year-old male comes in with nausea and vomiting. He states it feels like when he had DKA previously. Patient states that he has not been checking his blood sugars for weeks since his glucometer is broken. He denies any fever or chills. No pain or burning with urination. He initially denied any diarrhea or constipation however here he has had a number of loose stools. He states she does have some belly pain and points to his left lower quadrant but states that it is only a little pain. He states he has been having 10-15 bouts of nausea and vomiting since about 2 AM. Patient states he was already awake when he started having these symptoms. Patient also let nurses know that he has had a weight loss of 100 pounds in a 6 month period, this was unintentional weight loss. Patient also has a history of COPD and is chronically short of breath. MD elicited complaint: nausea, vomiting, diarrhea and abdominal pain (Left lower quadrant abdominal pain) Onset (ago): hour(s) (Since 2 AM this morning.) Description of vomiting: food contents Description of diarrhea: mucus and watery Associated nausea: Yes Associated abdominal pain: Yes Location of pain: LLQ Pain consistency: intermittent Severity: moderate Quality: other (Patient states it was just a little pain) Exacerbating factors: none Relieving factors: none Associated symtoms: Reports anxiety (Patient has been anxious with the pain.) and nausea; Denies bloating, dysuria, fecal incontinence or headache(s) Review of Systems Resp: Reports: dyspnea (Chronic COPD) GI: Reports: abdominal pain, nausea, vomiting, diarrhea and mucus in stool; Denies: hematemesis, coffee ground emesis, dysphagia, heartburn, early satiety, constipation, bloating, GI cramping, belching, excessive flatus, fecal incontinence, change in bowel habits or pain on defecation : Denies: flank pain, difficulty urinating, dysuria or urinary frequency Musc: Denies: neck pain, back pain or extremity pain Neuro: Denies: headache(s) or difficulty walking Psych: Reports: anxiety (Patient has been anxious with the pain.) Hipolito/Lymph: Denies: easy bruising Physical Exam Narrative: EXAM NARRATIVE: 65-year-old male appears to be in pain and anxious. Const: COMMON NORMALS: average body habitus, patient oriented x3, no limitations, alert and well nourished GENERAL APPEARANCE: cooperative, in distress (Appears to be in pain.), anxious, ill appearing and appears older than stated age; not lethargic ORIENTATION/CONSCIOUSNESS: Yes awake, Yes oriented to person, Yes oriented to place and Yes oriented to time; not confused, not patient obtunded and not lethargic HENMT: HEAD & SCALP: normal to inspection MOUTH: Normal oral and palatal mucosa present Eye: COMMON NORMALS: Equal, round and reactive pupils present, EOMs intact bilaterally, conjunctivae normal, no scleral icterus and no papilledema GENERAL EYE: appearance normal, both eyes and all related structures and normal light reflex CONJUNCTIVA: Yes conjunctivae normal PUPIL: Yes Equal, round and reactive pupils present DIRECT OPHTHALMOSCOPY: Yes normal light reflex and Yes no papilledema Neck/C-Spine: COMMON NORMALS: full ROM, no lymphadenopathy, supple, no meningeal signs, no JVD and Thyroid normal GENERAL: Yes normal visual inspection THYROID: Thyroid normal Resp: COMMON NORMALS: normal respiratory effort, No retractions, No use of accessory muscles and clear to auscultation bilaterally EFFORT & INSPECTION: Yes able to speak in complete sentences, Yes symmetric chest movement, No abnormal respiratory pattern, No tachypneic, No respiratory distress, No decreased respiratory effort, No labored, No grunting, No stridor, No Actively coughing, No retractions, No uses accessory muscles and No audible wheezes AUSCULTATION: clear to auscultation bilaterally, no crackles, no rales, no rhonchi, no wheezes and lung sounds not diminished Cardio: COMMON NORMALS: no JVD, regular rate, regular rhythm, No gallops present (Cardio), No clicks present (Cardio), No murmurs present (Cardio) and No rub (Cardio) RATE: regular rate RHYTHM: regular rhythm GI: COMMON NORMALS: Normal to inspection, nondistended, normoactive bowel sounds present, Soft to palpation, non-tender, No hepatosplenomegaly present, no masses and no bruits PALPATION: Yes Soft to palpation and Yes No hepatosplenomegaly present : COMMON NORMALS: Yes no CVA tenderness BLADDER/KIDNEY EXAM: Yes no CVA tenderness Back/Pelvis: COMMON NORMALS: no CVA tenderness Extremity: COMMON NORMALS: normal to inspection, full ROM, capillary refill normal, no joint enlargement, no clubbing, cyanosis or edema, no calf tenderness and no pedal edema Neuro: COMMON NORMALS: patient oriented x3, CN's II-XII intact bilaterally, moves all extremities, no focal motor deficits and gait normal SENSORIUM/ORIENTATION: Yes alert, Yes oriented to person, Yes oriented to place, Yes oriented to time, No Orientation impaired, No lethargic, No somnolent, No obtunded, No stuporous and No fluctuating sensorium MENINGEAL SIGNS: Yes no meningeal signs GAIT: Yes Normal gait present Psych: COMMON NORMALS: mental status grossly normal, Normal thought process present, cooperative, normal affect, speech normal and activity/motor behavior normal APPEARANCE: Yes grossly normal ATTITUDE: Yes calm and Yes engaged SPEECH: Yes normal speech MOOD & AFFECT: Yes anxious (Patient gets anxious when he has more pain.) THOUGHT PROCESS: Normal thought process present Course Vital Signs: Vital signs: Vital Signs Temperature 97.3 F L 06/26/20 10:29 Pulse Rate 94 06/26/20 16:41 Respiratory Rate 18 06/26/20 16:41 Blood Pressure 128/70 06/26/20 16:41 Pulse Oximetry 98 06/26/20 16:41 MDM - Nausea/Vomiting/Diarrhea Lab Data: Labs: Lab Results 06/26/20 06/26/20 06/26/20 Range/Units 10:35 10:43 10:43 WBC 10.1 H (4.0-10.0) 10^3/ uL RBC 5.78 H (4.1-5.3) 10^6/u L Hgb 17.1 H (11.7-16.6) g/dL Hct 49.6 (42.0-52.0) % MCV 85.8 (80-94) fL MCH 29.6 (28.0-34.0) pg MCHC 34.5 (30.0-36.0) g/dL RDW 12.7 (12.1-15.1) % Plt Count 311 (130-400) 10^3/c mm MPV 11.3 H (7.4-10.4) fL Neut % (Auto) 74.1 % Lymph % (Auto) 20.4 % Bullock % (Auto) 4.7 % Eos % (Auto) 0.2 % Baso % (Auto) 0.3 % Neut # (Auto) 7.50 (1.8-7.7) 10^3/u L Lymph # (Auto) 2.1 (0.8-4.8) 10^3/u L Bullock # (Auto) 0.5 (0.2-0.9) 10^3/u L Eos # (Auto) 0.0 (0.0-0.8) 10^3/u L Baso # (Auto) 0.0 (0.0-0.1) 10^3/u L Nucleated RBC % (a uto) 0 % Nucleated RBCs # 0.0 /100WBC Specimen Type Sample Site ABG pH (7.35-7.45) ABG pCO2 (35-45) mmHg ABG pO2 (80.0-100.0) mmH g ABG HCO3 (22-26) mmol/L ABG Base Excess (-2.0-2.0) mmol/ L Chuck Test Hematocrit (42-52) % Hgb O2 Saturation (95-100) % Carboxyhemoglobin (0.4-20.1) %THgb Methemoglobin (0.4-1.5) % Total Hemoglobin (14-18) g/dL O2 Delivery Device FiO2 % Dry Dip Worker ID Sodium 136 (136-145) mmol/L Potassium 3.6 (3.5-5.1) mmol/L Chloride 97 L (98-107) mmol/L Carbon Dioxide 18 L (22-29) mmol/L Anion Gap 24.6 H (5-19) BUN 17 (8-23) mg/dL Creatinine 0.7 (0.7-1.2) mg/dL GFR Calculation 113.9 (90-130) mL/min Glucose 304 H (65-115) mg/dL POC Glucose 270 H (70-110) mg/dL Calculated Osmolal ity 295 (285-295) mOsm/k g Lactate (0.5-2.2) mmol/L Calcium 9.6 (8.5-10.5) mg/dL Magnesium 1.8 (1.7-2.3) mg/dL Total Bilirubin 0.6 (0.15-1.2) mg/dL AST 11 (0-40) U/L ALT 14 (0-41) U/L Alkaline Phosphata se 102 (40-130) IU/L Total Protein 7.5 (6.6-8.7) g/dL Albumin 4.3 (3.5-5.2) g/dL Globulin 3.2 (1.3-4.6) g/dL Lipase 29 (13-60) U/L Urine Color (Yellow) Urine Appearance (CLEAR) Urine pH (5-7) Ur Specific Gravit y (1.005-1.030) Urine Protein (Negative) Urine Glucose (UA) (Normal) Urine Ketones (Negative) Urine Blood (Negative) Urine Nitrate (Negative) Urine Bilirubin (Negative) Prot Sulfosalicyli c Acd (Negative) Urine Urobilinogen (Negative) mg/dL Ur Leukocyte My ase (Negative) Serum Ketones (Negative) 06/26/20 06/26/20 06/26/20 Range/Units 10:43 10:43 10:48 WBC (4.0-10.0) 10^3/ uL RBC (4.1-5.3) 10^6/u L Hgb (11.7-16.6) g/dL Hct (42.0-52.0) % MCV (80-94) fL MCH (28.0-34.0) pg MCHC (30.0-36.0) g/dL RDW (12.1-15.1) % Plt Count (130-400) 10^3/c mm MPV (7.4-10.4) fL Neut % (Auto) % Lymph % (Auto) % Bullock % (Auto) % Eos % (Auto) % Baso % (Auto) % Neut # (Auto) (1.8-7.7) 10^3/u L Lymph # (Auto) (0.8-4.8) 10^3/u L Bullock # (Auto) (0.2-0.9) 10^3/u L Eos # (Auto) (0.0-0.8) 10^3/u L Baso # (Auto) (0.0-0.1) 10^3/u L Nucleated RBC % (a uto) % Nucleated RBCs # /100WBC Specimen Type Arterial Sample Site Radial, left ABG pH 7.59 H* (7.35-7.45) ABG pCO2 19.5 L* (35-45) mmHg ABG pO2 75.2 L (80.0-100.0) mmH g ABG HCO3 18.9 L (22-26) mmol/L ABG Base Excess 0.4 (-2.0-2.0) mmol/ L Chuck Test Pos Hematocrit 54.8 H (42-52) % Hgb O2 Saturation 95.4 (95-100) % Carboxyhemoglobin 0.1 L (0.4-20.1) %THgb Methemoglobin 0.5 (0.4-1.5) % Total Hemoglobin 17.9 (14-18) g/dL O2 Delivery Device Room air FiO2 21.0 % Dry Dip Worker ID Cak Sodium (136-145) mmol/L Potassium (3.5-5.1) mmol/L Chloride (98-107) mmol/L Carbon Dioxide (22-29) mmol/L Anion Gap (5-19) BUN (8-23) mg/dL Creatinine (0.7-1.2) mg/dL GFR Calculation (90-130) mL/min Glucose (65-115) mg/dL POC Glucose (70-110) mg/dL Calculated Osmolal ity (285-295) mOsm/k g Lactate 3.6 H (0.5-2.2) mmol/L Calcium (8.5-10.5) mg/dL Magnesium (1.7-2.3) mg/dL Total Bilirubin (0.15-1.2) mg/dL AST (0-40) U/L ALT (0-41) U/L Alkaline Phosphata se (40-130) IU/L Total Protein (6.6-8.7) g/dL Albumin (3.5-5.2) g/dL Globulin (1.3-4.6) g/dL Lipase (13-60) U/L Urine Color (Yellow) Urine Appearance (CLEAR) Urine pH (5-7) Ur Specific Gravit y (1.005-1.030) Urine Protein (Negative) Urine Glucose (UA) (Normal) Urine Ketones (Negative) Urine Blood (Negative) Urine Nitrate (Negative) Urine Bilirubin (Negative) Prot Sulfosalicyli c Acd (Negative) Urine Urobilinogen (Negative) mg/dL Ur Leukocyte My ase (Negative) Serum Ketones Positive H (Negative) 06/26/20 Range/Units 11:49 WBC (4.0-10.0) 10^3/ uL RBC (4.1-5.3) 10^6/u L Hgb (11.7-16.6) g/dL Hct (42.0-52.0) % MCV (80-94) fL MCH (28.0-34.0) pg MCHC (30.0-36.0) g/dL RDW (12.1-15.1) % Plt Count (130-400) 10^3/c mm MPV (7.4-10.4) fL Neut % (Auto) % Lymph % (Auto) % Bullock % (Auto) % Eos % (Auto) % Baso % (Auto) % Neut # (Auto) (1.8-7.7) 10^3/u L Lymph # (Auto) (0.8-4.8) 10^3/u L Bullock # (Auto) (0.2-0.9) 10^3/u L Eos # (Auto) (0.0-0.8) 10^3/u L Baso # (Auto) (0.0-0.1) 10^3/u L Nucleated RBC % (a uto) % Nucleated RBCs # /100WBC Specimen Type Sample Site ABG pH (7.35-7.45) ABG pCO2 (35-45) mmHg ABG pO2 (80.0-100.0) mmH g ABG HCO3 (22-26) mmol/L ABG Base Excess (-2.0-2.0) mmol/ L Chuck Test Hematocrit (42-52) % Hgb O2 Saturation (95-100) % Carboxyhemoglobin (0.4-20.1) %THgb Methemoglobin (0.4-1.5) % Total Hemoglobin (14-18) g/dL O2 Delivery Device FiO2 % Dry Dip Worker ID Sodium (136-145) mmol/L Potassium (3.5-5.1) mmol/L Chloride (98-107) mmol/L Carbon Dioxide (22-29) mmol/L Anion Gap (5-19) BUN (8-23) mg/dL Creatinine (0.7-1.2) mg/dL GFR Calculation (90-130) mL/min Glucose (65-115) mg/dL POC Glucose (70-110) mg/dL Calculated Osmolal ity (285-295) mOsm/k g Lactate (0.5-2.2) mmol/L Calcium (8.5-10.5) mg/dL Magnesium (1.7-2.3) mg/dL Total Bilirubin (0.15-1.2) mg/dL AST (0-40) U/L ALT (0-41) U/L Alkaline Phosphata se (40-130) IU/L Total Protein (6.6-8.7) g/dL Albumin (3.5-5.2) g/dL Globulin (1.3-4.6) g/dL Lipase (13-60) U/L Urine Color Yellow (Yellow) Urine Appearance Clear (CLEAR) Urine pH 8 H (5-7) Ur Specific Gravit y 1.015 (1.005-1.030) Urine Protein Neg (Negative) Urine Glucose (UA) 4+ H (Normal) Urine Ketones 2+ H (Negative) Urine Blood Neg (Negative) Urine Nitrate Negative (Negative) Urine Bilirubin Neg (Negative) Prot Sulfosalicyli c Acd Negative (Negative) Urine Urobilinogen 1 H (Negative) mg/dL Ur Leukocyte My ase Negative (Negative) Serum Ketones (Negative) Discharge Plan Discharge Patient Disposition: Home Clinical Impression: Colitis, Hyperglycemia Nausea & vomiting Qualifiers: Vomiting type: unspecified Vomiting Intractability: non-intractable Qualified Code(s): R11.2 - Nausea with vomiting, unspecified Condition: Stable Prescriptions: New Cipro 500 mg tablet 500 mg PO BID Qty: 20 RF: 0 Flagyl 500 mg tablet 500 mg PO TID Qty: 30 RF: 0 Zofran 4 mg tablet 4 mg PO Q4H Qty: 10 RF: 0 No Action Lantus U-100 Insulin 100 unit/mL solution 7 unit SUBCUT BID RF: 0 insulin regular human 100 unit/mL solution See Rx Instructions .ROUTE .COMPLEX RF: 0 albuterol sulfate 90 mcg/actuation HFA aerosol inhaler 2 inh INHALATION Q6H PRN (Reason: shortness of breath or wheezing) Qty: 8 RF: 0 ondansetron 4 mg tablet,disintegrating 4 mg PO Q6H PRN (Reason: nausea and vomiting) Qty: 14 RF: 0 Discharge Orders: Discharge ED (Routine); Ordered 06/26/20 Ordered By: Pb Gasca Discharge Diet: Advance as tolerated Discharge Activity: Increase activity as tolerated Patient Instructions: Opioid Safety Activity Restrictions/Additional Instructions: Increase noncaffeine/nonalcoholic fluids. Please obtain a glucometer and monitor your blood sugars. Coding Level of Care Code ED Tapping Machine Operator for Kennethg Fwd Exam Comprehensive
[2020-06-26] MEDS: iohexol 300 mg/mL 100 mL Btl IV (14:59)
[2020-06-26 16:41] VITALS: BP 128/70; PULSE 94; RESP 18; O2SAT 98
--- NOTE | 2020-06-27 15:29 | DCPLANNER ---
water resources project manager had message to speak with patient about getting a primary care physician. water resources project manager spoke with patient, he stated that he would like help in getting established with a primary care physician, but he does not have any insurance at this time. water resources project manager offered to send patient both of the patient financial coordinator applications to the patient and schedule a follow up appointment for patient with a primary care physician. Patient stated that he would like to have the patient financial coordinator applications sent to him but not to schedule a follow up appointment until he finds out where he is on the sliding scale. water resources project manager will send patient patient financial coordinator applications.
== END 2020-06-26 16:43 | disposition home or self-care (01) ==
PROVIDERS: Emergency Provider Emergency Medicine
DX: K52.9 Noninfective gastroenteritis and colitis, unspecified (principal); E11.65 Type 2 diabetes mellitus with hyperglycemia; Z79.4 Long term (current) use of insulin
CPT/HCPCS: 36416; 36600; 71045; 74177; 80053; 81003; 82009; 82805; 82962; 83605; 83690; 83735; 85025; 87425; 87493; 87506; 96361; 96374; 96375; 99284; J2060; J2405; J7030; Q9967

== ENCOUNTER 2021-02-26 08:01 | Emergency (ER) | payer OTHER, SELFPAY ==
--- NOTE | 2021-02-26 08:06 | ED_ITS ---
HPI - Abdominal Pain General: Chief Complaint: Abdominal Pain Stated Complaint: UPPER ABD PAIN Time Seen by Provider: 02/26/21 08:05 History of Present Illness: HPI narrative: Abdominal pain x 6 days MD elicited complaint: abdominal pain Pertinent past history: other (hiatal hernia) Onset (ago): day(s) (6) Location: Epigastric Severity: severe Pain scale (0-10): 7 Quality: cramping Radiation: none Exacerbating factors: eating Relieving factors: nothing Associated Symptoms: Reports anorexia, diarrhea, nausea and vomiting Review of Systems General: Reports: 10 or more systems reviewed and unremarkable except in HPI and below Const: Reports: fatigue GI: Reports: abdominal pain, nausea, vomiting and diarrhea Physical Exam Const: COMMON NORMALS: no acute distress, patient oriented x3, no limitations and alert GENERAL APPEARANCE: cooperative and comfortable ORIENTATION/CONSCIOUSNESS: Yes awake, Yes oriented to person, Yes oriented to place and Yes oriented to time HENMT: COMMON NORMALS: normocephalic, atraumatic, external ears normal, EAC's normal, TM's normal bilaterally and Normal external nose present HEAD & SCALP: normal to inspection, normocephalic and atraumatic FACE & SINUS: normal facial exam, sinuses nontender and face symmetric NOSE: Normal external nose present, Normal nares present and No nasal discharge present EXTERNAL EAR: Yes external ears normal EXTERNAL AUDITORY CANAL: EAC's normal TYMPANIC MEMBRANE: TM's normal bilaterally MOUTH: Normal oral and palatal mucosa present, lip normal and tongue normal THROAT: posterior oropharynx normal, tonsils normal and uvula midline Eye: COMMON NORMALS: Equal, round and reactive pupils present, EOMs intact bilaterally and conjunctivae normal GENERAL EYE: appearance normal, both eyes and all related structures and normal light reflex EYELID: eyelids normal CONJUNCTIVA: Yes conjunctivae normal PUPIL: Yes Equal, round and reactive pupils present EOM: Yes EOM abnormal DIRECT OPHTHALMOSCOPY: Yes normal light reflex Neck/C-Spine: COMMON NORMALS: full ROM, no lymphadenopathy, supple, no meningeal signs, no JVD and Thyroid normal GENERAL: Yes normal visual inspection THYROID: Thyroid normal CERVICAL SPINE: Yes cervical ROM normal and Yes normal cervical lordosis Lymph: LYMPHATIC: no lymphadenopathy noted Chest: COMMONS NORMALS: normal inspection of the chest and normal palpation of entire chest wall Resp: COMMON NORMALS: normal respiratory effort, No retractions and clear to auscultation bilaterally AUSCULTATION: clear to auscultation bilaterally Cardio: COMMON NORMALS: no JVD, regular rate, regular rhythm, S1 normal heart sound present, S2 normal heart sound present, No gallops present (Cardio), No clicks present (Cardio), No murmurs present (Cardio), No rub (Cardio) and Peripheral pulses 2+ throughout RATE: regular rate RHYTHM: regular rhythm HEART SOUNDS: S1 normal heart sound present and S2 normal heart sound present PERIPHERAL PULSES: Peripheral pulses 2+ throughout GI: COMMON NORMALS: Soft to palpation and No hepatosplenomegaly present INSPECTION: Yes normal to inspection AUSCULTATION: Yes Hypoactive bowel sounds present PALPATION: Yes Soft to palpation, Yes Tenderness to palpation present (GI) (epigastric, LUQ) and Yes No hepatosplenomegaly present PERCUSSION: dullness to percussion RECTAL EXAM: Yes deferred : COMMON NORMALS: Yes no CVA tenderness BLADDER/KIDNEY EXAM: Yes no CVA tenderness Back/Pelvis: COMMON NORMALS: no CVA tenderness, thoracic and lumbar spine normal to inspection, no thoracic nor lumbar tenderness and thoraco-lumbar ROM normal Extremity: COMMON NORMALS: normal to inspection, full ROM, capillary refill normal, no joint enlargement, no clubbing, cyanosis or edema, no calf tenderness and no pedal edema GENERAL: Yes normal exam except as noted Neuro: COMMON NORMALS: patient oriented x3, moves all extremities, no focal motor deficits, no sensory deficits noted and gait normal SENSORIUM/ORIENTATION: Yes alert, Yes oriented to person, Yes oriented to place and Yes oriented to time MENINGEAL SIGNS: Yes no meningeal signs Psych: COMMON NORMALS: mental status grossly normal, Normal thought process present, cooperative, normal affect, speech normal and activity/motor behavior normal SPEECH: Yes normal speech THOUGHT PROCESS: Normal thought process present Skin: COMMON NORMALS: no rashes or lesions noted, no wounds and turgor normal GENERAL SKIN EXAM: no rashes or lesions noted, turgor normal and turgor decreased Course ED course: Pt presents to ER with complains of NVD and inability to hold fluids down for approximately 6 days, progressively worsening. He has not been able to eat or drink in >24 hours. Last loose stool was 3 days ago. Hx of hiatal hernia and constant pain in the epigrastric region. No fever. CT ordered and fluids initiated. Awaiting Labs and UA at this time. Meds for pain and nausea given. Reevaluation(s): Reevaluation #1: Pt pain decreased mildly with first round of morphine,repeat dose given. Pt resting comfortably at this time. CT reveals likely viral enteritis. No acute findings. Labs correlate with mild dehydration and viral syndrome. We will treat with oral zofran and bentyl while pt follows up with his PCP in the next 24 to 48 hours to decide if oral antibx are indicated. We are awaiting UA before DC to rule out any infection from his urinary tract. Time: 10:33 Reevaluation #2: Pt pain has decreased and is tolerating PO fluid challenge. UA does not indicate infection. Will DC with zofran script and bentyl. Return if fever or worsening in symptoms Time: 11:48 Vital Signs: Vital signs: Vital Signs Temperature 98.0 F 02/26/21 08:18 Pulse Rate 72 02/26/21 10:03 Respiratory Rate 15 02/26/21 10:03 Blood Pressure 139/85 02/26/21 10:03 Pulse Oximetry 97 02/26/21 10:03 MDM - Abdominal Pain Lab Data: Labs: Lab Results 02/26/21 02/26/21 02/26/21 09:01 09:01 11:00 WBC 12.4 10^3/uL H 10 ^3/uL (4.0-10.0) RBC 5.57 10^6/uL H 10 ^6/uL (4.1-5.3) Hgb 17.0 g/dL H g/dL (11.7-16.6) Hct 47.8 % % (42.0-52.0) MCV 85.8 fl fl (80-94) MCH 30.5 pg pg (28.0-34.0) MCHC 35.6 g/dL g/dL (30.0-36.0) RDW 13.1 % % (12.1-15.1) Plt Count 332 10^3/cmm 10^3 /cmm (130-400) MPV 10.0 fL fL (7.4-10.4) Neut % (Auto) 71.4 % % Lymph % (Auto) 19.6 % % [place] % (Auto) 8.2 % % Eos % (Auto) 0.1 % % Baso % (Auto) 0.2 % % Neut # (Auto) 8.85 10^3/uL H 10 ^3/uL (1.8-7.7) Lymph # (Auto) 2.4 10^3/uL 10^3/ uL (0.8-4.8) [place] # (Auto) 1.0 10^3/uL H 10^ 3/uL (0.2-0.9) Eos # (Auto) 0.0 10^3/uL 10^3/ uL (0.0-0.8) Baso # (Auto) 0.0 10^3/uL 10^3/ uL (0.0-0.1) Nucleated RBC % (a uto) 0 % % Nucleated RBCs # 0.0 /100WBC /100W BC Sodium 132 mmol/L L mmol /L (136-145) Potassium 3.9 mmol/L mmol/L (3.5-5.1) Chloride 95 mmol/L L mmol/ L (98-107) Carbon Dioxide 22 mmol/L mmol/L (22-29) Anion Gap 18.9 (5-19) BUN 18 mg/dL mg/dL (8-23) Creatinine 0.6 mg/dL L mg/dL (0.7-1.2) GFR Calculation 136.1 mL/min H mL /min (90-130) Glucose 173 mg/dL H mg/dL (65-115) Calculated Osmolal ity 280 mOsm/kg L mOs m/kg (285-295) Calcium 9.0 mg/dL mg/dL (8.5-10.5) Total Bilirubin 1.1 mg/dL mg/dL (0.15-1.2) AST 12 U/L U/L (0-40) ALT 11 U/L U/L (0-41) Alkaline Phosphata se 82 IU/L IU/L (40-130) Total Protein 7.4 g/dL g/dL (6.6-8.7) Albumin 4.2 g/dL g/dL (3.5-5.2) Globulin 3.2 g/dL g/dL (1.3-4.6) Urine Color Yellow (Yellow) Urine Appearance Clear (CLEAR) Urine pH 7 (5-7) Ur Specific Gravit y 1.005 (1.005-1.030) Urine Protein Trace (Negative) Urine Glucose (UA) Norm (Normal) Urine Ketones Negative (Negative) Urine Blood Neg (Negative) Urine Nitrate Negative (Negative) Urine Bilirubin Neg (Negative) Urine Urobilinogen Norm mg/dL mg/dL (Negative) Ur Leukocyte My ase Negative (Negative) Urine RBC None /hpf /hpf (0-2) Urine WBC None /hpf /hpf (0-5) Ur Squamous Epith Cells None /hpf /hpf (0-5) Amorphous Sediment Not Reportable Urine Bacteria Trace /hpf /hpf (NONE) Imaging Data ^: CT Abd/Pel: Radiologist's impression: [facility] [address] [address] Scan Report Signed Patient: Dangelo Patricia Unit #: [id number] : 1955 Age/Sex: 65 / M ADM Date: 02/26/21 Loc: ER Room/Bed: Attending Dr: Ordering Provider/Ordering MD: Emely Avendano NP Date of Service: 02/26/21 Procedure(s): CT abdomen pelvis w con* [id number] Accession Number(s): [id number] Report Number: [id number] PROCEDURE INFORMATION: Exam: CT Abdomen And Pelvis With Contrast Exam date and time: 02/26/2021 8:34 AM Age: 65 years old Clinical indication: Abdominal pain; Patient HX: Epigastric pain; Additional info: Abd pain TECHNIQUE: Imaging protocol: Computed tomography of the abdomen and pelvis with contrast. Radiation optimization: All CT scans at this facility use at least one of these dose optimization techniques: automated exposure control; mA and/or kV adjustment per patient size (includes targeted exams where dose is matched to clinical indication); or iterative reconstruction. Contrast material: VISIPAQUE 320; Contrast volume: 95 ml; Contrast route: INTRAVENOUS (IV); COMPARISON: CT abdomen pelvis w con* [id number] 06/26/2020 3:12 PM RADIATION DOSE METRICS: Total DLP (mGy-cm): 1245.08 FINDINGS: Lungs: Posterior bibasilar pulmonary parenchymal scarring, with mild cicatricial atelectasis, interval increase. Bibasilar emphysematous foci, mixed paraseptal and centrilobular. Liver: Wedge-shaped hypodensity posterior right lobe of liver, stable (series 601; previous injury?). Gallbladder and bile ducts: Gallbladder fundal Phrygian cap, normal variant. Pancreas: Moderate pancreatic atrophy. Spleen: Normal. No splenomegaly. Adrenal glands: Normal. No mass. Kidneys and ureters: Bilateral renal probable benign cysts, largest on the left measuring 15.7 mm. Stomach and bowel: There is mild caliber prominence of a few mid abdominal small bowel loops with increased intraluminal fluid and without definite wall thickening. No abrupt caliber transition identified. Sigmoid, distal descending and proximal transverse colonic diverticula are present without evidence of diverticulitis. Appendix: The vermiform appendix is normal. Intraperitoneal space: No free air. No significant fluid collection. Vasculature: Moderate abdominal aortic atherosclerotic calcification without aneurysm. The iliac arteries show mild bilateral atherosclerotic calcifications without evidence of aneurysm. Lymph nodes: No enlarged lymph nodes. Urinary bladder: Unremarkable as visualized. Reproductive: The prostate gland demonstrates nonspecific parenchymal calcifications. Bones/joints: Unremarkable. No acute fracture. Soft tissues: Unremarkable. CT/CT abdomen pelvis w con* [id number] IMPRESSION: 1. Possible mild nonspecific enteritis. Clinical correlation is recommended. 2. Bilateral renal probable benign cysts. No follow-up imaging is recommended. 3. Diverticulosis. 4. Chronic calcific prostatitis. 5. 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 COMMENTS: Consistent with the [employer]'s Incidental Findings Committee white paper (J [employer] Dianelys [employer]iol 2018): Any incidental renal lesion less than 1 cm or classified as too small to characterize, or any incidental cystic renal lesion characterized as simple-appearing, is likely benign. No follow-up imaging is recommended for these lesions per consensus recommendations based on imaging criteria. Dictated By: Kiet German MD Signed By: Kiet German MD Signed Date/Time: 02/26/21 1017 DD/ 0834 Discharge Plan Discharge Prescriptions: No Action Lantus U-100 Insulin 100 unit/mL solution 7 unit SUBCUT BID RF: 0 insulin regular human 100 unit/mL solution See Rx Instructions .ROUTE .COMPLEX RF: 0 albuterol sulfate 90 mcg/actuation HFA aerosol inhaler 2 inh INHALATION Q6H PRN (Reason: shortness of breath or wheezing) Qty: 8 RF: 0 ondansetron 4 mg tablet,disintegrating 4 mg PO Q6H PRN (Reason: nausea and vomiting) Qty: 14 RF: 0 Cipro 500 mg tablet 500 mg PO BID Qty: 20 RF: 0 Flagyl 500 mg tablet 500 mg PO TID Qty: 30 RF: 0 Zofran 4 mg tablet 4 mg PO Q4H Qty: 10 RF: 0 Coding Level of Care Code ED Purchasing And Fiscal Clerk for Chg Fwd Exam Comprehensive
[2021-02-26 08:18] VITALS: BP 132/89; PULSE 94; RESP 16; TEMP 36.7; O2SAT 94; BMI 22.1
--- NOTE | 2021-02-26 08:34 | CTR_ITS ---
PROCEDURE INFORMATION: Exam: CT Abdomen And Pelvis With Contrast Exam date and time: 02/26/2021 8:34 AM Age: 65 years old Clinical indication: Abdominal pain; Patient HX: Epigastric pain; Additional info: Abd pain TECHNIQUE: Imaging protocol: Computed tomography of the abdomen and pelvis with contrast. Radiation optimization: All CT scans at this facility use at least one of these dose optimization techniques: automated exposure control; mA and/or kV adjustment per patient size (includes targeted exams where dose is matched to clinical indication); or iterative reconstruction. Contrast material: VISIPAQUE 320; Contrast volume: 95 ml; Contrast route: INTRAVENOUS (IV); COMPARISON: CT abdomen pelvis w con* [id number] 06/26/2020 3:12 PM RADIATION DOSE METRICS: Total DLP (mGy-cm): 1245.08 FINDINGS: Lungs: Posterior bibasilar pulmonary parenchymal scarring, with mild cicatricial atelectasis, interval increase. Bibasilar emphysematous foci, mixed paraseptal and centrilobular. Liver: Wedge-shaped hypodensity posterior right lobe of liver, stable (series 601; previous injury?). Gallbladder and bile ducts: Gallbladder fundal Phrygian cap, normal variant. Pancreas: Moderate pancreatic atrophy. Spleen: Normal. No splenomegaly. Adrenal glands: Normal. No mass. Kidneys and ureters: Bilateral renal probable benign cysts, largest on the left measuring 15.7 mm. Stomach and bowel: There is mild caliber prominence of a few mid abdominal small bowel loops with increased intraluminal fluid and without definite wall thickening. No abrupt caliber transition identified. Sigmoid, distal descending and proximal transverse colonic diverticula are present without evidence of diverticulitis. Appendix: The vermiform appendix is normal. Intraperitoneal space: No free air. No significant fluid collection. Vasculature: Moderate abdominal aortic atherosclerotic calcification without aneurysm. The iliac arteries show mild bilateral atherosclerotic calcifications without evidence of aneurysm. Lymph nodes: No enlarged lymph nodes. Urinary bladder: Unremarkable as visualized. Reproductive: The prostate gland demonstrates nonspecific parenchymal calcifications. Bones/joints: Unremarkable. No acute fracture. Soft tissues: Unremarkable. CT/CT abdomen pelvis w con* [id number] IMPRESSION: 1. Possible mild nonspecific enteritis. Clinical correlation is recommended. 2. Bilateral renal probable benign cysts. No follow-up imaging is recommended. 3. Diverticulosis. 4. Chronic calcific prostatitis. 5. 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 COMMENTS: Consistent with the [employer]'s Incidental Findings Committee white paper (J [employer] Dianelys Radiol 2018): Any incidental renal lesion less than 1 cm or classified as too small to characterize, or any incidental cystic renal lesion characterized as simple-appearing, is likely benign. No follow-up imaging is recommended for these lesions per consensus recommendations based on imaging criteria.
[2021-02-26] MEDS: sodium chloride 0.9% 500 ML 1000 ML IV (08:49)
[2021-02-26] MEDS: morphine 4 mg/mL SDV 1 mL IVP ×2 (08:49→10:22)
[2021-02-26 09:03] VITALS: BP 162/88; PULSE 88; RESP 16; O2SAT 98
[2021-02-26 09:23] LABS: Basophils % 0.2 %; Eosinophils % 0.1 %; Hematocrit 47.8 % (42.0-52.0); Lymphocytes # 2.4 10^3/uL (0.8-4.8); Lymphocytes % 19.6 %; Mean Corpuscular HGB Conc 35.6 g/dL (30.0-36.0); Mean Corpuscular Hemoglobin 30.5 pg (28.0-34.0); Mean Corpuscular Volume 85.8 fl (80-94); Monocytes % 8.2 %; Neutrophils # 8.85 10^3/uL (1.8-7.7); Neutrophils % 71.4 %; Nucleated Red Blood Cells % 0 %; Platelet Count 332 10^3/cmm (130-400); Red Blood Count 5.57 10^6/uL (4.1-5.3); Red Cell Distribution Width 13.1 % (12.1-15.1); White Blood Count 12.4 10^3/uL (4.0-10.0)
[2021-02-26 09:37] LABS: Alanine Aminotransferase 11 U/L (0-41); Albumin Level 4.2 g/dL (3.5-5.2); Alkaline Phosphatase 82 IU/L (40-130); Anion Gap 18.9 (5-19); Aspartate Amino Transferase 12 U/L (0-40); Blood Urea Nitrogen 18 mg/dL (8-23); Carbon Dioxide 22 mmol/L (22-29); Chloride 95 mmol/L (98-107); Globulin 3.2 g/dL (1.3-4.6); Glomerular Filtration Rate 136.1 mL/min (90-130); Glucose 173 mg/dL (65-115); Osmolality Calculated 280 mOsm/kg (285-295); Potassium 3.9 mmol/L (3.5-5.1); Sodium 132 mmol/L (136-145); Total Bilirubin 1.1 mg/dL (0.15-1.2); Total Protein 7.4 g/dL (6.6-8.7)
[2021-02-26] MEDS: iodixanol 320 mg/mL 100mL Btl IV (09:51)
[2021-02-26 10:03] VITALS: BP 139/85; PULSE 72; RESP 15; O2SAT 97
[2021-02-26] MEDS: sodium chloride 0.9% 500 ML IV (10:22)
[2021-02-26] MEDS: dicyclomine 10 mg Capsule 20 MG PO (10:48)
[2021-02-26 11:37] LABS: Add Urine Microscopic? YES; Bilirubin Urine Neg (Negative); Blood Urine Neg (Negative); Glucose Urine UA Norm (Normal); Ketones Urine Negative (Negative); Leukocyte Esterase Urine Negative (Negative); Nitrate Urine Negative (Negative); Protein Urine Trace (Negative); Specific Gravity, Urine 1.005 (1.005-1.030); Urine Appearance Clear (CLEAR); Urine Color Yellow (Yellow); Urobilinogen Urine Norm (Negative); pH Urine 7 (5-7)
[2021-02-26 11:38] LABS: Add Urine Culture? No; Bacteria Urine TRACE /hpf
[2021-02-26 12:00] VITALS: BP 144/82; PULSE 88; RESP 15; O2SAT 96
[2021-02-26 12:07] VITALS: BP 144/82; PULSE 88; RESP 15; O2SAT 96
== END 2021-02-26 12:07 | disposition home or self-care (01) ==
PROVIDERS: Emergency Provider Nurse Practitioner Family; PCP Nurse Practitioner Family
DX: R10.10 Upper abdominal pain, unspecified (principal); Z79.4 Long term (current) use of insulin
CPT/HCPCS: 74177; 80053; 81001; 85025; 96361; 96374; 96375; 96376; 99284; J2270; J3411; J7040; Q9967